=== PATIENT | male | born 1985 | race African-American/Black ===

== ENCOUNTER 2016-11-22 07:46 | Emergency (ER) | payer SELFPAY ==
[~2016-11-22] VITALS: Ht 180.3 cm; Wt 73.0 kg
[2016-11-22 07:54] VITALS: BP 128/87; PULSE 97; RESP 16; TEMP 100; O2SAT 99
[2016-11-22 08:04] VITALS: BP 126/81; PULSE 97; RESP 16; TEMP 99.1; O2SAT 100
--- NOTE | 2016-11-22 08:29 | PD ---
HPI Chief Complaint: Fever Time Seen by Provider: 08:16 Travel History International Travel<30 days: No Contact w/Intl Traveler<30days: No Traveled to known affect area: No History of Present Illness HPI This is a 31-year-old male who presents to the emergency department with fevers and chills for 2 days associated with rhinorrhea, cough, sore throat and myalgias. He says his fever was 103-105 all night. He has a history of bronchitis and he smokes marijuana. His symptoms have been constant, worsening , moderate severity. He also reports that he's had some intermittent discharge and odor coming from his penis. He's had several sexual partners in the past 6 months and is concerned he may have an STD. PFSH Past Medical History Hx Anticoagulant Therapy: No Asthma: Yes Diabetes: No Diminished Hearing: No Past Surgical History Tonsillectomy: Yes Social History Alcohol Use: No Tobacco Use: No Substance Use: Yes (MARIJUANA ) Allergies-Medications (Allergen,Severity, Reaction): Coded Allergies: Codeine (Verified Allergy, Severe, I DON'T KNOW, 11/22/16) Reported Meds & Prescriptions Reported Meds & Active Scripts Active No Active Prescriptions or Reported Medications Review of Systems Except as stated in HPI: all other systems reviewed are Neg Physical Exam Narrative GENERAL:Well appearing, no acute distress SKIN: Warm and dry. HEAD: Atraumatic. Normocephalic. EYES: Pupils equal and round. No injection or drainage. ENT: Moist mucous membranes. Mild posterior pharyngeal erythema. NECK: Trachea midline. CARDIOVASCULAR: Regular rate and rhythm. No murmur appreciated. RESPIRATORY: Clear to auscultation. Breath sounds equal bilaterally. GASTROINTESTINAL: Abdomen soft, non-tender, nondistended. MUSCULOSKELETAL: No obvious deformities. NEUROLOGICAL: Awake and alert. No obvious cranial nerve deficits. Moving all extremities. PSYCHIATRIC: Appropriate mood and affect; insight and judgment normal. Data Data Last Documented VS Vital Signs Date Time Temp Pulse Resp B/P Pulse Ox O2 Delivery O2 Flow Rate FiO2 11/22/16 08:04 99.1 97 16 126/81 100 Room Air Orders Influenzae A/B Antigen (11/22/16 08:26) Azithromycin Powd Pack (Zithromax Powd P (11/22/16 08:30) Ceftriaxone Inj (Rocephin Inj) (11/22/16 08:30) Metronidazole (Flagyl) (11/22/16 08:30) Sodium Chloride 0.9% Flush (Ns Flush) (11/22/16 08:30) Lidocaine 1% Inj (50 Ml) (Xylocaine 1% I (11/22/16 08:30) [facility] Medical Decision Making Medical Screen Exam Complete: Yes Emergency Medical Condition: Yes Interpretation(s) Positive for influenza A Differential Diagnosis Influenza A, bronchitis, viral syndrome, pneumonia Narrative Course This is a 31-year-old male who presents to the emergency department with fevers and body aches. He is nontoxic appearing. He tested positive for influenza A. He also is concern for STD. He was empirically treated. Patient will be discharged home. His symptoms have been present for less than 2 days so he will be started on Tamiflu. Diagnosis Primary Impression: Influenza A Additional Impression: Urethritis Patient Instructions: General Instructions Additional Instructions: If you develop severe chest pain, shortness of breath, sweating, lightheadedness , dizziness or difficulty breathing return to the emergency department immediately. Followup with your primary care physician in 2-3 days if your symptoms are not resolved. Med/Other Pt SpecificInfo: Prescription(s) given Scripts Oseltamivir (Tamiflu)75 Mg Cap75 Mg PO BID 5 Days Ref 0 Prov:Cyndie Hope MD 11/22/16 Disposition: 01 DISCHARGE HOME Condition: Stable Cyndie Hope MD Nov 22, 2016 08:29
[2016-11-22] MEDS ORDERED: SODIUM CHLORIDE 0.9% FLUSH 5 ML FLUSH IVF PRN (08:30)
[2016-11-22] MEDS ORDERED: cefTRIAXone 250 MG VIAL IM ONE (08:30)
[2016-11-22] MEDS ORDERED: AZITHROMYCIN PWD FOR SUSP 1 GM PACKET PO ONE (08:30)
[2016-11-22] MEDS ORDERED: LIDOCAINE HCL 1% 50 ML VIAL XX ONE (08:30)
[2016-11-22] MEDS ORDERED: metroNIDAZOLE 500 MG TAB PO ONE (08:30)
[2016-11-22] MEDS ORDERED: OSEL75 PO (08:55)
[2016-11-22] MEDS ORDERED: KETOROLAC TROMETHAMINE 60 MG/2 ML (IM) VIAL IM ONE (09:00)
[2016-11-22] MEDS ORDERED: ONDANSETRON ODT 4 MG TAB PO ONE (09:15)
[2016-11-22 09:49] VITALS: TEMP 99.4
== END 2016-11-22 09:51 | disposition home or self-care (01) ==
LOC: PHED 07:46
DX: J09.X2 Influenza due to identified novel influenza A virus with other respiratory manifestations (principal); N34.2 Other urethritis; J45.909 Unspecified asthma, uncomplicated
CPT/HCPCS: 87804; 96372; 99283; J0696; J1885